=== PATIENT | male | born 2000 | race Caucasian/White ===

== ENCOUNTER 2018-02-09 18:32 | Emergency (ER) | payer BC | END 2018-02-09 20:50 | disposition home or self-care (01) | LOC: FTE 18:32 | DX: F43.9 Reaction to severe stress, unspecified (principal); I10 Essential (primary) hypertension | CPT/HCPCS: 82962; 99282 ==

== ENCOUNTER 2018-07-17 10:26 | Emergency (ER) | payer BC | END 2018-07-17 11:11 | disposition home or self-care (01) | LOC: FTE 10:26 | DX: R20.2 Paresthesia of skin (principal); I10 Essential (primary) hypertension | CPT/HCPCS: 99283; Z7502 ==

== ENCOUNTER 2018-10-09 16:58 | Emergency (ER) | payer BC | END 2018-10-09 17:31 | disposition home or self-care (01) | LOC: E/R 17:31 | DX: S05.91XA Unspecified injury of right eye and orbit, initial encounter (principal); I10 Essential (primary) hypertension; X58.XXXA Exposure to other specified factors, initial encounter; Y92.9 Unspecified place or not applicable | CPT/HCPCS: 99282; Z7502 ==

== ENCOUNTER 2018-12-15 13:21 | Emergency (ER) | payer BC | END 2018-12-15 13:44 | disposition home or self-care (01) | LOC: E/R 13:21 | DX: H66.002 Acute suppurative otitis media without spontaneous rupture of ear drum, left ear (principal); I10 Essential (primary) hypertension | CPT/HCPCS: 99283; Z7502 ==